=== PATIENT | female | born 1955 | race Caucasian/White ===

== ENCOUNTER → 2019-07-02 | Outpatient (CLI) | payer OTHER ==
--- NOTE | 2019-07-02 08:10 | BD ---
EXAMINATION TYPE: Axial Bone Density DATE OF EXAM: 07/02/2019 COMPARISON:2016 CLINICAL HISTORY: post menopausal Height: 5'4 Weight: 234 FRAX RISK QUESTIONS: Secondary Osteoporosis: RISK FACTORS HISTORY OF: Diet low in dairy products/other sources of calcium: y Postmenopausal woman: y MEDICATIONS: Additional Medications: blood pressure Additional History: EXAM MEASUREMENTS: Bone mineral densitometry was performed using the [employer] System. Bone mineral density as measured about the Lumbar spine is: ----- L1-L4(G/cm2): 1.332 T Score Values are as follows: ----- L2: 1.0 ----- L3: 1.4 ----- L4: 1.9 ----- L1-L4: 1.3 Bone mineral density has: Decreased -0.6% since study of: 05/06/2016 Bone mineral density about the R hip (g/cm2): 1.113 Bone mineral density about the L hip (g/cm2): 1.034 T Score values are as follows: -----R Neck: 0.5 -----L Neck: 0.0 -----R Total: 0.9 -----L Total: 1.3 Bone mineral density has: Decreased -1.9% since study of: 05/06/2016 IMPRESSION: Normal (Values between +1 and -1 indicate normal bone mass). Consider repeating this study in 5 year s or sooner if there is some new clinical indication. NOTE: T-SCORE=SD OF THE YOUNG ADULT MEAN.
--- NOTE | 2019-07-04 10:12 | MM ---
Reason for exam: screening (asymptomatic). Last mammogram was performed 3 years and 2 months ago. History: Patient is postmenopausal. Physical Findings: A clinical breast exam by your physician is recommended on an annual basis and results should be correlated with mammographic findings. MG Screening Mammo w CAD Bilateral CC and MLO view(s) were taken. Prior study comparison: June 29, 2017, mammogram. May 06, 2016, bilateral MG screening mammo w CAD. September 12, 2014, bilateral MG work up mamm w CAD BILAT. There are scattered fibroglandular densities. No significant changes when compared with prior studies. ASSESSMENT: Benign, BI-RAD 2 RECOMMENDATION: Routine screening mammogram of both breasts in 1 year.
== END | disposition home or self-care (01) ==
LOC: RADMAMWWP 06:54
PROVIDERS: ATTEND Family Medicine
DX: Z12.31 Encounter for screening mammogram for malignant neoplasm of breast (principal); Z13.820 Encounter for screening for osteoporosis; Z78.0 Asymptomatic menopausal state
CPT/HCPCS: 77067; 77080

== ENCOUNTER → 2020-08-10 | Outpatient (CLI) | payer OTHER ==
--- NOTE | 2020-08-11 13:58 | MM ---
Reason for exam: screening (asymptomatic). Last mammogram was performed 1 year and 1 month ago. History: Patient is postmenopausal. Physical Findings: A clinical breast exam by your physician is recommended on an annual basis and results should be correlated with mammographic findings. MG Screening Mammo w CAD Bilateral CC and MLO view(s) were taken. Prior study comparison: July 02, 2019, bilateral MG screening mammo w CAD. June 29, 2017, mammogram. The breast tissue is almost entirely fat. No significant changes when compared with prior studies. ASSESSMENT: Negative, BI-RAD 1 RECOMMENDATION: Routine screening mammogram of both breasts in 1 year.
== END | disposition home or self-care (01) ==
LOC: RADMAMWWP 16:01
PROVIDERS: ATTEND Obstetrics & Gynecology
DX: Z12.31 Encounter for screening mammogram for malignant neoplasm of breast (principal)
CPT/HCPCS: 77067

== ENCOUNTER → 2021-08-20 | Outpatient (CLI) | payer OTHER ==
--- NOTE | 2021-08-24 10:21 | MM ---
Reason for exam: screening (asymptomatic). Last mammogram was performed 1 year ago. History: Patient is postmenopausal. Physical Findings: A clinical breast exam by your physician is recommended on an annual basis and results should be correlated with mammographic findings. MG Screening Mammo w CAD Bilateral CC and MLO view(s) were taken. Prior study comparison: August 10, 2020, bilateral MG screening mammo w CAD. June 29, 2017, mammogram. May 06, 2016, bilateral MG screening mammo w CAD. The breast tissue is almost entirely fat. There is chronic nodularity bilaterally. No significant changes when compared with prior studies. ASSESSMENT: Benign, BI-RAD 2 RECOMMENDATION: Routine screening mammogram of both breasts in 1 year.
== END | disposition home or self-care (01) ==
LOC: RADMAMWWP 16:20
PROVIDERS: ATTEND Obstetrics & Gynecology
DX: Z12.31 Encounter for screening mammogram for malignant neoplasm of breast (principal); Z78.0 Asymptomatic menopausal state
CPT/HCPCS: 77067

== ENCOUNTER → 2022-08-24 | Outpatient (CLI) | payer MEDICARE, OTHER ==
--- NOTE | 2022-08-25 19:53 | MM ---
Reason for Exam: Screening (asymptomatic). Last screening mammogram was performed 12 month(s) ago. Patient History: Menarche at age 15. First Full-Term at age 17. Postmenopausal. Risk Values: Afia 5 year model risk: 1.1%. NCI Lifetime model risk: 4.2%. Prior Study Comparison: 07/02/2019 Bilateral Screening Mammogram, [facility]. 08/10/2020 Bilateral Screening Mammogram, [facility]. 08/20/2021 Bilateral Screening Mammogram, [facility]. Tissue Density: There are scattered fibroglandular densities. Findings: Analyzed By CAD. Underlying low-density chronic nodularity on the left. No significant change from prior exams. Overall Assessment: Benign, BI-RAD 2 Management: Screening Mammogram of both breasts in 1 year. 1. Patient should continue monthly self breast exams. 2. A clinical breast exam by your physician is recommended on an annual basis. 3. This exam should not preclude additional follow-up of suspicious palpable abnormalities. Electronically signed and approved by: Fina Moreau M.D. Radiologist
== END | disposition home or self-care (01) ==
LOC: RADMAMWWP 08:01
PROVIDERS: ATTEND Obstetrics & Gynecology
DX: Z12.31 Encounter for screening mammogram for malignant neoplasm of breast (principal); Z78.0 Asymptomatic menopausal state
CPT/HCPCS: 77063; 77067

== ENCOUNTER 2022-11-29 12:26 | Emergency (ER) | payer OTHER, MEDICARE ==
[2022-11-29 12:33] VITALS: PULSE 81; TEMP 98.4
[2022-11-29] MEDS ORDERED: LIDOCAINE 1% INJ 10MG/ML (30 ML VIAL-PF) SQ ONE (12:38)
[2022-11-29] MEDS ORDERED: DIPH,PERTUS(ACELL)TETVAC-LF 0.5 ML VIAL IM ONE (12:38)
--- NOTE | 2022-11-29 12:45 | ED ---
Wound/Laceration HPI - General Chief Complaint: Wound/Laceration Stated Complaint: IHS-arm lac Time Seen by Provider: 11/29/22 12:29 Source: patient Mode of arrival: ambulatory - History of Present Illness Initial Comments: Patient is a 67 year old female who presents for right arm laceration. Patient collided with another coworker while carrying a coffee pot and fell onto the ground. A piece of the glass pot cut patient's right forearm. Patient was not burned. She reports no pain. Last tetanus unknown - Related Data Allergies Allergy/AdvReac Type Severity Reaction Status Date / Time No Known Allergies Allergy Verified 11/29/22 12:33 Review of Systems ROS Statement: Those systems with pertinent positive or pertinent negative responses have been documented in the HPI. ROS Other: All systems not noted in ROS Statement are negative. Past Medical History Past Medical History: No Reported History History of Any Multi-Drug Resistant Organisms: None Reported Past Surgical History: No Surgical Hx Reported Past Psychological History: No Psychological Hx Reported Smoking Status: Never smoker Past Alcohol Use History: None Reported Past Drug Use History: None Reported General Exam General appearance: alert, in no apparent distress Respiratory exam: Present: normal lung sounds bilaterally. Absent: respiratory distress, wheezes, rales, rhonchi, stridor Cardiovascular Exam: Present: regular rate, normal rhythm, normal heart sounds. Absent: systolic murmur, diastolic murmur, rubs, gallop, clicks Extremities exam: Present: other (1 cm lac to right lateral forearm, nonbleeding. full ROM, cap refill < 2 sec) Neurological exam: Present: alert, oriented X3, CN II-XII intact Psychiatric exam: Present: normal affect, normal mood Skin exam: Present: warm, dry, intact, normal color. Absent: rash Course Vital Signs 11/29/22 12:28 Temperature 98.4 F Pulse Rate 81 Respiratory 16 Rate Blood Pressure 140/86 O2 Sat by Pulse 95 Oximetry Procedures - Laceration Laceration #1 Consent Obtained: verbal consent Indication: laceration Site: upper extremity Size (cm): 1 Description: linear Depth: simple, single layer Anesthetic Used: lidocaine 1% Anesthesia Technique: local infiltration Size of Sutures: 5-0 Number of Sutures: 2 Technique: simple, interrupted Patient Tolerated Procedure: well, no complications Medical Decision Making - Medical Decision Making Was pt. sent in by a medical professional or institution ([facility]UD[facility] Monge, GLOBAL RECRUITER, urgent care, hospital, or fdc...) When possible be specific @ -[No] Did you speak to anyone other than the patient for history (EMS, parent, family, police, friend...)? What history was obtained from this source @ -[No] Did you review nursing and triage notes (agree or disagree)? Why? @ -[I reviewed and agree with nursing and triage notes] Were old charts reviewed (outside hosp., previous admission, EMS record, old EKG, old radiological studies, urgent care reports/EKG's, fdc records)? Report findings @ -[No old charts were reviewed] Differential Diagnosis (chest pain, altered mental status, abdominal pain women, abdominal pain men, vaginal bleeding, weakness, fever, dyspnea, syncope, headache, dizziness, GI bleed, back pain, seizure, CVA, palpatations, mental health)? @ -laceration, abrasion, arm fracture EKG interpreted by me (3pts min.). @ -[As above] X-rays interpreted by me (1pt min.). @ -Yes, right forearm x-ray negative for fracture and foreign body CT interpreted by me (1pt min.). @ -[None done] U/S interpreted by me (1pt. min.). @ -[None done] What testing was considered but not performed or refused? (CT, X-rays, U/S, labs)? Why? @ -[None] What meds were considered but not given or refused? Why? @ -[None] Did you discuss the management of the patient with other professionals (professionals i.e. [facility]UDDY Monge, GLOBAL RECRUITER, lab, RT, psych nurse, social sciences lecturer, highway maintainer, teacher, police officer, district sales manager)? Give summary @ -[No] Was smoking cessation discussed for >3mins.? @ -[No] Was critical care preformed (if so, how long)? @ -[No] Were there social determinants of health that impacted care today? How? (Homelessness, low income, unemployed, alcoholism, drug addiction, transportation, low edu. Level, literacy, decrease access to med. care, fdc, rehab)? @ -[No] Was there de-escalation of care discussed even if they declined (Discuss DNR or withdrawal of care, Hospice)? DNR status @ -[No] What co-morbidities impacted this encounter? (DM, HTN, Smoking, COPD, CAD, Cancer, CVA, ARF, Chemo, Hep., AIDS, mental health diagnosis, sleep apnea, morbid obesity)? @ -[None] Was patient admitted / discharged? Hospital course, mention meds given and route, prescriptions, significant lab abnormalities, going to OR and other pertinent info. @ -This is a 67-year-old female presents with small right forearm laceration. No foreign body evident on x-ray. Laceration well approximated 2 sutures. Tetanus updated. Wound care discussed in detail. Return in 7-10 days for suture removal. Undiagnosed new problem with uncertain prognosis? @ -[No] Drug Therapy requiring intensive monitoring for toxicity (Heparin, Nitro, Insulin, Cardizem)? @ -[No] Were any procedures done? @ -yes, laceration repair Diagnosis/symptom? @ -laceration Acute, or Chronic, or Acute on Chronic? @ -acute Uncomplicated (without systemic symptoms) or Complicated (systemic symptoms)? @ -uncomplicated Side effects of treatment? @ -[No] Exacerbation, Progression, or Severe Exacerbation? @ -[No] Poses a threat to life or bodily function? How? (Chest pain, [place], [place], pneumonia, PE, COPD, DKA, ARF, appy, cholecystitis, CVA, Diverticulitis, Homicidal, Suicidal, threat to staff... and all critical care pts) @ -[No] Dr. Sampson is my attending. Disposition Clinical Impression: Laceration Disposition: HOME SELF-CARE Condition: Good Instructions (If sedation given, give patient instructions): Care For Your St itches (ED), Laceration (ED) Additional Instructions: Leave wound uncovered. Keep wound clean and dry. Wash with a mild soap. Take Tylenol or anti-inflammatories such as Motrin for pain. Follow-up with primary care provider in 1-2 days. Return for suture removal in 7-10 days. Report back to the emergency department if you experience new, concerning, or worsening symptoms. Is patient prescribed a controlled substance at d/c from ED?: No Referrals: Georgi Fernandez MD [REFERRING] - 1-2 days
--- NOTE | 2022-11-29 13:36 | XR ---
EXAMINATION TYPE: XR forearm RT DATE OF EXAM: 11/29/2022 1:04 PM INDICATION: Patient age:Female; 67 years old; Reason for study: rule out foreign body; PH[facility]. COMPARISON: None TECHNIQUE: The right forearm was examined in AP and lateral projections. FINDINGS: No acute osseous pathology, soft tissue swelling or joint dislocations are seen. No defini tive radiopaque foreign body identified. IMPRESSION: 1. No evidence of acute fracture. 2. No definitive radiopaque foreign body identified.
[2022-11-29 14:10] VITALS: BP 134/84; RESP 18
== END 2022-11-29 14:09 | disposition home or self-care (01) ==
LOC: EC 12:26
DX: S41.111A Laceration without foreign body of right upper arm, initial encounter (principal); W03.XXXA Other fall on same level due to collision with another person, initial encounter
CPT/HCPCS: 99283; 12001; 73090; 90715; 90471; J2001

== ENCOUNTER → 2023-06-07 | Outpatient (CLI) | payer MEDICARE, OTHER ==
--- NOTE | 2023-06-08 17:58 | CA ---
Transthoracic Echo Report Name: Evelina Bo Age: 67 Gender: F : 1955 Exam Date: 06/07/2023 13:42 Exam Location: [place] [facility] Ht (in): 64 Wt (lb): 247 Ordering Physician: Georgi Fernandez MD Attending/Referring Phys: Mercury Cracking Tester Serenity Davey RDCS Procedure CPT: Indications: I87.2 VENOUS INSUFFICIENCY (CHRONIC) (PERIPHERAL) Cardiac Hx: Technical Quality: Fair Contrast 1: Total Dose (mL): Contrast 2: Total Dose (mL): MEASUREMENTS (Male / Female) Normal Values 2D ECHO LV Diastolic Diameter PLAX 4.6 cm 4.2 - 5.9 / 3.9 - 5.3 cm LV Systolic Diameter PLAX 3.0 cm IVS Diastolic Thickness 1.2 cm 0.6 - 1.0 / 0.6 - 0.9 cm LVPW Diastolic Thickness 1.3 cm 0.6 - 1.0 / 0.6 - 0.9 cm LV Relative Wall Thickness 0.5 RV Internal Dim ED PLAX 3.7 cm LA Systolic Diameter LX 3.7 cm 3.0 - 4.0 / 2.7 - 3.8 cm LV Diastolic Volume MOD 4C 80.9 cm??? LV Systolic Volume MOD 4C 29.9 cm??? LV Ejection Fraction MOD 4C 63.0 % LV Cardiac Index MOD 4C 1455.7 cm???/min???m??? LV Diastolic Length 4C 8.5 cm LV Systolic Length 4C 7.1 cm LV Diastolic Volume MOD 2C 65.7 cm??? LV Systolic Volume MOD 2C 31.2 cm??? LV Ejection Fraction MOD 2C 52.6 % LV Cardiac Index MOD 2C 986.2 cm???/min???m??? LV Diastolic Length 2C 8.0 cm LV Systolic Length 2C 6.2 cm LA Volume 72.9 cm??? 18 - 58 / 22 - 52 cm??? M-MODE Aortic Root Diameter MM 3.8 cm MV E Point Septal Separation 0.4 cm AV Cusp Separation MM 1.9 cm DOPPLER AV Peak Velocity 182.7 cm/s AV Peak Gradient 13.4 mmHg MV Area PHT 1.8 cm??? Mitral E Point Velocity 79.2 cm/s Mitral A Point Velocity 100.4 cm/s Mitral E to A Ratio 0.8 MV Deceleration Time 419.5 ms MV E' Velocity 4.8 cm/s Mitral E to MV E' Ratio 16.5 TR Peak Velocity 243.1 cm/s TR Peak Gradient 23.6 mmHg Right Ventricular Systolic Press 28.6 mmHg FINDINGS Left Ventricle Left ventricular ejection fraction is estimated at 55-60 %. Left ventricular cavity size normal. Normal left ventricular wall motion. Mildly increased left ventricular wall thickness. Right Ventricle Mild right ventricular dilatation. Right ventricular systolic pressure within normal limits. Right Atrium Normal right atrial size. Left Atrium Moderately increased left atrial volume. Mildly increased left atrial area. Mitral Valve Structurally normal mitral valve. Mitral annular calcification. Mild mitral regurgitation. Aortic Valve Trileaflet aortic valve. No aortic valve stenosis or regurgitation. Tricuspid Valve Structurally normal tricuspid valve. Trace tricuspid regurgitation. Pulmonic Valve Structurally normal pulmonic valve. Trace pulmonic regurgitation. Pericardium Normal pericardium. No pericardial effusion. Aorta Mild aortic dilatation at the level of the sinuses of valsalva 38 mm CONCLUSIONS 1. Normal left ventricular size and systolic function 2. Mild mitral regurgitation Previewed by: Dr. Afshin Ramos MD (Electronically Signed) Final Date: 08 June 2023 17:57
== END | disposition home or self-care (01) ==
LOC: RADECHMAIN 13:35
PROVIDERS: ATTEND Internal Medicine
DX: I08.1 Rheumatic disorders of both mitral and tricuspid valves (principal); I87.2 Venous insufficiency (chronic) (peripheral)
CPT/HCPCS: 93306

== ENCOUNTER → 2023-09-27 | Outpatient (CLI) | payer MEDICARE ==
--- NOTE | 2023-09-28 09:12 | MM ---
Reason for Exam: Screening (asymptomatic). Last mammogram was performed 1 year(s) and 1 month(s) ago. Patient History: Menarche at age 15. First Full-Term at age 17. Postmenopausal. Risk Values: Afia 5 year model risk: 1.1%. NCI Lifetime model risk: 4.0%. Prior Study Comparison: 08/10/2020 Bilateral Screening Mammogram, [facility]. 08/20/2021 Bilateral Screening Mammogram, [facility]. 08/24/2022 Bilateral MG 3D screening mammo w/cad, [facility]. Tissue Density: There are scattered fibroglandular densities. Findings: Analyzed By CAD. There is no suspicious group of microcalcifications or new suspicious mass in either breast. Overall Assessment: Negative, BI-RAD 1 Management: Screening Mammogram of both breasts in 1 year. . Patient should continue monthly self-breast exams. A clinical breast exam by your physician is recommended on an annual basis. This exam should not preclude additional follow-up of suspicious palpable abnormalities. Note on Afia scores and lifetime risk: 1. A Afia score greater than 3% is considered moderate risk. If this is the case, consider specialist referral to assess eligibility for a risk reducing agent. 2. If overall lifetime risk for the development of breast cancer is 20% or higher, the patient may qualify for future screening with alternating mammogram and breast MRI. Electronically signed and approved by: Jose C Park M.D. Radiologis
== END | disposition home or self-care (01) ==
LOC: RADMAMWWP 06:50
PROVIDERS: ATTEND Internal Medicine
DX: Z12.31 Encounter for screening mammogram for malignant neoplasm of breast (principal); Z78.0 Asymptomatic menopausal state
CPT/HCPCS: 77067

== ENCOUNTER 2024-08-06 10:14 | Day surgery (SDC) | payer MEDICARE ==
[~2024-08-06 10:14] MED LIST: LACTATED RINGERS 1,000 ML IV SCH
[2024-08-06] MEDS: IV FLUID CONTINUATION 1,000 ML IV ONE (10:59)
[2024-08-06 11:06] VITALS: RESP 16; TEMP 97.6
[2024-08-06] MEDS ORDERED: PROPOFOL 10 MG/ML 20 ML VIAL IV ONE (12:05)
--- NOTE | 2024-08-06 12:19 | P.PCN ---
Date of Procedure: 08/06/24 Procedure(s) Performed: BRIEF HISTORY: Patient is a 68-year-old pleasant white female scheduled for an elective colonoscopy as a part of screening for colon cancer. PROCEDURE PERFORMED: Colonoscopy with cold snare polypectomy. PREOPERATIVE DIAGNOSIS: Screening for colon cancer. IV sedation per Anesthesia. PROCEDURE: After informed consent was obtained, the patient, was brought into the endoscopy unit. IV sedation was administered by Anesthesia under continuous monitoring. Digital rectal examination was normal. Initially the Olympus CF-160 flexible video colonoscope was then inserted in the rectum, gradually advanced into the cecum without any difficulty. Careful examination was performed as the scope was gradually being withdrawn. Ileocecal valve and the appendiceal orifice were visualized and appeared normal. Prep was excellent. Mucosa of the cecum, appeared normal. Descending colon there was a 5 mm polyp that was removed by cold snare polypectomy. Rest of the ascending colon, transverse colon, descending colon, sigmoid colon, and rectum appeared normal. Katter sigmoid diverticulosis. Retroflexion was performed in the rectum and no lesions were seen. The patient tolerated the procedure well. IMPRESSION: 5 mm ascending colon polyp status post cold snare polypectomy Scattered sigmoid diverticulosis RECOMMENDATIONS: Findings of this examination were discussed with the patient as well as her family. She was advised to follow-up with the biopsy results. If the biopsy reveals adenoma she can colonoscopy in 5 years..
[2024-08-06 12:48] VITALS: BP 149/81; PULSE 56
== END 2024-08-06 13:00 | disposition home or self-care (01) ==
LOC: ORWHC2ENDO 10:14
PROVIDERS: ATTEND Internal Medicine Gastroenterology
DX: Z12.11 Encounter for screening for malignant neoplasm of colon
CPT/HCPCS: 45385; 88305

== ENCOUNTER → 2024-10-08 | Outpatient (CLI) | payer MEDICARE ==
--- NOTE | 2024-10-08 17:39 | BD ---
EXAMINATION TYPE: Axial Bone Density DATE OF EXAM: 10/08/2024 CLINICAL HISTORY: 68 years old Female. ICD-10 CODE: Z78.0 ASYMP [place] , Additional History: Height: 63 Weight: 250.4 FRAX RISK QUESTIONS: Alcohol (3 or more units per day): no Family History (Parent hip fracture): yes Glucocorticoids (More than 3mos): no (Ex: prednisone, prednisolone, methylprednisolone, dexamethasone, and hydrocortisone). History of Fracture in Adulthood: no Secondary Osteoporosis: 1. Type 1 Diabetes: no 2. Hyperthyroidism: no 3. Menopause before 45: no 4. Malnutrition: no 5. Chronic liver disease: no Rheumatoid Arthritis: no Current Tobacco Use: no RISK FACTORS HISTORY OF: Surgery to Spine/Hip(right/left)/Wrist (right/left): no EXAM MEASUREMENTS: Bone mineral densitometry was performed using the [employer] System. Bone mineral density as measured about the Lumbar spine is: ----- L1-L4(G/cm2): 1.260 T Score Values are as follows: ----- L1: 0.7 ----- L2: 0.3 ----- L3: 0.5 ----- L4: 1.0 ----- L1-L4: 0.7 Z Score Values are as follows: ----- L1: 1.1 ----- L2: 0.7 ----- L3: 1.0 ----- L4: 1.5 ----- L1-L4: 1.1 Bone mineral density has: ddecreased -5.4% since study of: 07.02.2019 Bone mineral density about the R hip (g/cm2): 0.978 Bone mineral density about the L hip (g/cm2): 1.079 T Score values are as follows: -----R Neck: -0.4 -----L Neck: -0.4 -----R Total: -0.2 -----L Total: 0.6 Z Score values are as follows: -----R Neck: 0.5 -----L Neck: 0.4 -----R Total: 0.3 -----L Total: 1.1 Bone mineral density has: decreased -9.9 % since study of: 07.02.2019 FRAX%s: The graph provided illustrates a 11.2% chance for a major osteoporotic fx and a 0.5% chance f or the hips probability for fx in 10 years time. IMPRESSION: Normal (Values between +1 and -1 indicate normal bone mass). Consider repeating this study in 5 year s or sooner if there is some new clinical indication. NOTE: T-SCORE=SD OF THE YOUNG ADULT MEAN. [facility], , 10/08/2024 5:37 PM
--- NOTE | 2024-10-09 08:19 | MM ---
Reason for Exam: Screening (asymptomatic). Last screening mammogram was performed 12 month(s) ago. Patient History: Menarche at age 15. First Full-Term at age 17. Postmenopausal. Risk Values: Afia 5 year model risk: 1.1%. NCI Lifetime model risk: 3.8%. Prior Study Comparison: 08/20/2021 Bilateral Screening Mammogram, [facility]. 08/24/2022 Bilateral MG 3D screening mammo w/cad, [facility]. 09/27/2023 Bilateral MG screening mammo w CAD, [facility]. Tissue Density: There are scattered areas of fibroglandular density. Findings: Analyzed By CAD. There is no suspicious group of microcalcifications or new suspicious mass in either breast. Stable chronic nodularity left breast. Benign-appearing calcifications. Overall Assessment: Benign, BI-RAD 2 Management: Screening Mammogram of both breasts in 1 year. . Patient should continue monthly self-breast exams. A clinical breast exam by your physician is recommended on an annual basis. This exam should not preclude additional follow-up of suspicious palpable abnormalities. Note on Afia scores and lifetime risk: 1. A Afia score greater than 3% is considered moderate risk. If this is the case, consider specialist referral to assess eligibility for a risk reducing agent. 2. If overall lifetime risk for the development of breast cancer is 20% or higher, the patient may qualify for future screening with alternating mammogram and breast MRI. [facility], , 10/09/2024 8:16 AM. Electronically signed and approved by: Jaxson Lane M.D. Radiologis
== END | disposition home or self-care (01) ==
LOC: RADMAMWWP 15:58
PROVIDERS: ATTEND Internal Medicine
DX: Z12.31 Encounter for screening mammogram for malignant neoplasm of breast (principal); Z13.820 Encounter for screening for osteoporosis; R92.323 Mammographic fibroglandular density, bilateral breasts; Z78.0 Asymptomatic menopausal state
CPT/HCPCS: 77067; 77080